=== PATIENT | male | born 1960 ===

== ENCOUNTER 2024-08-14 08:58 | Outpatient (AMB) | payer BC, SELFPAY ==
--- NOTE | 2024-08-14 08:58 | MHC.PC.OV ---
Vital Signs 08/14/24 09:11 08/14/24 09:20 Height 6 ft 8 in Weight 406 lb BMI 44.6 BP 144/80 H 118/72 Blood Pressure Location Rt brachial Rt brachial Position Sitting Sitting Pulse 76 Pulse Source Pulse Oximeter Pulse Oximetry (%) 95 Oxygen Delivery Method Room Air Intake Visit Reasons: MANAGER PET-EST CARE Intake Note: New patient visit. A1c 5.4 on 07/01/24 Allergies cats Allergy (Unknown, Uncoded 08/14/24 09:01) Sneezing Medication List - Last Reconciled 08/14/24 by Mikala Mclean PA-C lisinopril 30 mg PO DAILY Tobacco use date assessed: 08/14/24 Dental Screening Dental Screen Date: 08/14/24 Did you have a dental visit in the last 12 months?: Yes Did you have a dental problem in the last 6 months where you did not have access to dental care?: No Was dental information given to patient?: Patient has dentist HPI MANAGER PET-EST CARE HPI Details Patient is a 63-year-old male who presents today with a significant past medical history hypertension, hyperlipidemia, obstructive sleep apnea, morbid obesity, diabetes presenting today for a follow up. He was last seen by myself at [facility]. HEENT: He gets frequent otitis externa is due to his ear polyps. He would like to see ENT. PULM: Following with Dr. Tuttle for his CPAP. CV: Blood pressure today is 118/72 and on lisinopril 30 mg daily. Endo: Last A1c was 5.4 previously it was 7.4. He is on Ozempic 0.5 mg weekly. He would like to increase the dose of work further on weight loss. Colonoscopy: 10/24 diverticulosis, repeat in 10 years [facility] Surgical History (Updated 08/14/24 @ 09:00 by Antonina Pinzon CMA) H/O arthroscopy Family History (Updated 08/14/24 @ 09:08 by Antonina Pinzon CMA) Mother HTN (hypertension) Lung cancer Social History (Updated 08/14/24 @ 09:08 by Antonina Pinzon CMA) Housing: House Alcohol intake: current Patient Tobacco Use Status: Never used Tobacco e-Cigarette/Vaping Use: Never Used Second Hand Smoke Exposure: No service: No Current occupational status: employed and retired Cognitive needs: No Hearing needs: No Vision needs: No Physical exam (Primary Care) Vital Signs: Last Vital Signs Pulse 76 08/14/24 09:11 BP 118/72 08/14/24 09:20 Pulse Ox 95 08/14/24 09:11 Oxygen Delivery Method Room Air 08/14/24 09:11 BMI result Body Mass Index 44.6 Tobacco/Smoking Status: Tobacco use Status Tobacco use date assessed 08/14/24 08/14/24 09:13 Patient Tobacco Use Status Never used Tobacco 08/14/24 09:13 e-Cigarette/Vaping Use Never Used 08/14/24 09:13 Const Orientation/consciousness: patient oriented x3 HENMT Ears: hearing grossly normal bilaterally Neck Thyroid: Thyroid normal Lymphatic: no lymphadenopathy noted Resp Auscultation: clear to auscultation bilaterally Cardio Rate: regular rate Rhythm: regular rhythm Heart sounds: S1 normal heart sound present and S2 normal heart sound present GI Inspection: Yes normal to inspection Palpation (GI): Soft to palpation and Other GI palpation findings present (nontender, no cva tenderness) Auscultation: normoactive bowel sounds Rectal Exam - Male: Yes deferred Skin General skin exam: no rashes or lesions noted Neuro General: patient oriented x3, gait normal and no focal motor deficits Coding Level of Care Code Est Pt Level 4 (40521) Complex EM visit Add On G2211 Diagnoses Polyp of both ear canals H61.893 Controlled type 2 diabetes mellitus without complication, without long-term current use of insulin E11.9 Diabetes mellitus assisted insulin use: without assembler metal furniture use Diabetes mellitus complication status: without complication HTN (hypertension) I10 Severe obesity (BMI >= 40) E66.01 Dyslipidemia E78.5 Assessment & Plan Assessment & Plan (1) Polyp of both ear canals: Code(s): H61.893 - Other specified disorders of external ear, bilateral Category: Medical Plan: Referral to ENT placed (2) Controlled type 2 diabetes mellitus: Code(s): E11.9 - Type 2 diabetes mellitus without complications Category: Medical Qualifiers: Diabetes mellitus assembler metal furniture insulin use: without assisted use Diabetes mellitus complication status: without complication Qualified Code(s): E11.9 - Type 2 diabetes mellitus without complications Plan: Continue Ozempic. Increase dose today. (3) HTN (hypertension): Code(s): I10 - Essential (primary) hypertension Category: Medical Plan: WNL. Continue current regimen (4) Severe obesity (BMI >= 40): Code(s): E66.01 - Morbid (severe) obesity due to excess calories Category: Medical Plan: As above. Increased Ozempic. Encouraged him to reduce his portion sizes. (5) Dyslipidemia: Code(s): E78.5 - Hyperlipidemia, unspecified Category: Medical Plan: We will monitor. Labs ordered. We will follow up pending test results. Orders: Orders Complete Blood Count Auto Diff Today E11.9 - Type 2 diabetes mellitus without complications, E66.01 - Morbid (severe) obesity due to excess calories, E78.5 - Hyperlipidemia, unspecified, I10 - Essential (primary) hypertension Lipid Panel Today E11.9 - Type 2 diabetes mellitus without complications, E66.01 - Morbid (severe) obesity due to excess calories, E78.5 - Hyperlipidemia, unspecified, I10 - Essential (primary) hypertension Hemoglobin A1c Today E11.9 - Type 2 diabetes mellitus without complications, E66.01 - Morbid (severe) obesity due to excess calories, E78.5 - Hyperlipidemia, unspecified, I10 - Essential (primary) hypertension Comprehensive [place]. Panel Fast Today E11.9 - Type 2 diabetes mellitus without complications, E66.01 - Morbid (severe) obesity due to excess calories, E78.5 - Hyperlipidemia, unspecified, I10 - Essential (primary) hypertension Microalbumin, Random (w Creat) Today E11.9 - Type 2 diabetes mellitus without complications, E66.01 - Morbid (severe) obesity due to excess calories, E78.5 - Hyperlipidemia, unspecified, I10 - Essential (primary) hypertension TSH reflex Free T4 Today E11.9 - Type 2 diabetes mellitus without complications, E66.01 - Morbid (severe) obesity due to excess calories, E78.5 - Hyperlipidemia, unspecified, I10 - Essential (primary) hypertension Referrals Ear/Nose/Throat Referral H61.893 - Other specified disorders of external ear, bilateral Medications: New semaglutide (Ozempic) 1 mg (0.75 mL) subcut QWEEK 3 mL 2RF gycckdnm-dtxoffmtv-UF 3.5-10,000-1 mg/mL-unit/mL-% 4 drps otic (ear) left Q8H 10 mL 0RF 10 days
[2024-08-14 09:11] VITALS: BP 144/80; PULSE 76; O2SAT 95; BMI 44.6
[2024-08-14 09:20] VITALS: BP 118/72
== END 2024-08-14 09:59 | disposition home or self-care (01) ==
PROVIDERS: PCP Internal Medicine; Visit Provider Physician Assistant
DX: E11.69 Type 2 diabetes mellitus with other specified complication (principal); E66.01 Morbid (severe) obesity due to excess calories; Z68.41 Body mass index [BMI] 40.0-44.9, adult; H61.893 Other specified disorders of external ear, bilateral; I10 Essential (primary) hypertension; E78.5 Hyperlipidemia, unspecified

== ENCOUNTER → 2024-08-14 08:58 | Outpatient (BNVA) | payer BC, SELFPAY | PROVIDERS: PCP Internal Medicine; Visit Provider Physician Assistant | DX: Z23 Encounter for immunization (principal); H61.893 Other specified disorders of external ear, bilateral; E11.9 Type 2 diabetes mellitus without complications; I10 Essential (primary) hypertension; E66.01 Morbid (severe) obesity due to excess calories; Z68.41 Body mass index [BMI] 40.0-44.9, adult; E78.5 Hyperlipidemia, unspecified; Z79.85 Long-term (current) use of injectable non-insulin antidiabetic drugs | CPT/HCPCS: 90471; 90656 ==

== ENCOUNTER 2024-11-19 09:18 | Outpatient (AMB) | payer BC, SELFPAY ==
--- NOTE | 2024-11-19 09:33 | A.OFFPC_ITS ---
Vital Signs 11/19/24 09:41 Height 6 ft 8 in Weight 422 lb 6 oz BMI 46.4 BP 131/78 Blood Pressure Location Rt brachial Position Sitting Respiration 18 Pulse 77 Pulse Source Pulse Oximeter Pulse Oximetry (%) 98 Oxygen Delivery Method Room Air Intake Visit Reasons: DM Intake Note: Diabetes follow up Cutter First Required: No Allergies cats Allergy (Unknown, Uncoded 11/19/24 09:33) Sneezing Medication List - Last Reconciled 11/19/24 by Mikala Mclean PA-C lisinopril 30 mg PO DAILY qloaqzif-ixcyqwfnw-[place] 3.5-10,000-1 mg/mL-unit/mL-% 4 drps otic (ear) left Q8H 10 days semaglutide (Ozempic) 1 mg (0.75 mL) subcut QWEEK Tobacco use date assessed: 08/14/24 Dental Screening Dental Screen Date: 08/14/24 HPI DM HPI Details Patient is a 63-year-old male who presents today with a significant past medical history hypertension, hyperlipidemia, obstructive sleep apnea, morbid obesity, diabetes presenting today for a follow up. HEENT: He gets frequent otitis externa is due to his ear polyps. He would like to see ENT. PULM: Following with Dr. Tuttle for his CPAP. CV: Blood pressure today is 131/78 and on lisinopril 30 mg daily. Endo: Last A1c was 5.3 previously it was 7.4. He is on Ozempic 1 mg weekly. He would like to increase the dose of work further on weight loss. He did gain more weight from our last visit. He attributes this to the winter and lack of exercise with the holiday season as well. Colonoscopy: 10/24 diverticulosis, repeat in 10 years PSA-due [facility] Surgical History (Updated 08/14/24 @ 09:00 by Antonina Pinzon CMA) H/O arthroscopy Family History (Updated 08/14/24 @ 09:08 by Antonina Pinzon CMA) Mother HTN (hypertension) Lung cancer Social History (Updated 08/14/24 @ 09:08 by Antonina Pinzon CMA) Housing: House Alcohol intake: current Patient Tobacco Use Status: Never used Tobacco e-Cigarette/Vaping Use: Never Used Second Hand Smoke Exposure: No service: No Current occupational status: employed and retired Cognitive needs: No Hearing needs: No Vision needs: No Questionnaire Thrive Questionnaire Date Thrive assessed: 11/12/24 I am a: Patient What is your living situation today?: I have a steady place to live Within the past 12 months, did the food you bought not last and you didn't have the money to get more?: I choose not to answer this question Within the past 12 months, did you worry whether your food would run out before you got money to buy more?: I choose not to answer this question Do you have trouble paying for medicines?: I choose not to answer this question Do you have trouble getting transportation to medical appointments?: No Do you have trouble paying your heating and electricity bill?: I choose not to answer this question Do you have trouble taking care of your child, family member or friend?: No Do you have trouble with day-to-day activities such as bathing, preparing meals, shopping, managing finances, etc.?: No Are you currently unemployed and looking for a job?: I choose not to answer this question Are you interested in more education?: I choose not to answer this question Please select the resources that you would like help with: None Currently or been in a relationship where the following occur: I choose not to answer THRIVE Score: 0 AUDIT C Alcohol Use Questionnaire (AUDIT-C) 1. How often do you have a drink containing alcohol?: Monthly or less 2. How many drinks containing alcohol do you have on a typical day when you are drinking?: 1 or 2 3. How often do you have six or more drinks on one occasion?: Never Total Score: 1 LACY-7 AMB Questionnaire LACY-7 Feeling nervous, anxious, or on edge: 0 = Not at all Not being able to stop or control worryin = Not at all Worrying too much about different things: 0 = Not at all Trouble relaxin = Not at all Being so restless that it is hard to sit still: 0 = Not at all Becoming easily annoyed or irritable: 0 = Not at all Feeling afraid as if something awful might happen: 0 = Not at all Total LACY-7 score (0-4 normal; 5-9 mild; 10-14 moderate; 15-21 severe): 0 Source: Developed by Drs. Lio Desai, Brook Cabrales, Albert Ngo and colleagues, with an educational blanche from [employer]. Physical exam (Primary Care) Vital Signs: Last Vital Signs Pulse 77 11/19/24 09:41 Resp 18 11/19/24 09:41 BP 131/78 11/19/24 09:41 Pulse Ox 98 11/19/24 09:41 Oxygen Delivery Method Room Air 11/19/24 09:41 BMI result Body Mass Index 46.4 Tobacco/Smoking Status: Tobacco use Status Tobacco use date assessed 08/14/24 11/19/24 09:35 Patient Tobacco Use Status Never used Tobacco 11/19/24 09:35 e-Cigarette/Vaping Use Never Used 11/19/24 09:35 Thrive Assessment: Date of Thrive Assessment Date Thrive assessed 11/12/24 11/19/24 09:35 Currently or been in a relationship where the following occur: I choose not to answer Const Orientation/consciousness: patient oriented x3 HENMT Ears: hearing grossly normal bilaterally Neck Thyroid: Thyroid normal Lymphatic: no lymphadenopathy noted Resp Auscultation: clear to auscultation bilaterally Cardio Rate: regular rate Rhythm: regular rhythm Heart sounds: S1 normal heart sound present and S2 normal heart sound present GI Inspection: Yes normal to inspection Palpation (GI): Soft to palpation and Other GI palpation findings present (nontender, no cva tenderness) Auscultation: normoactive bowel sounds Rectal Exam - Male: Yes deferred Skin General skin exam: no rashes or lesions noted Neuro General: patient oriented x3, gait normal and no focal motor deficits Results AMB Hemoglobin A1c AMB Hemoglobin A1c 5.3 % Last Edit by Antonina Pinzon CMA on 11/19/24 10:03 Coding Level of Care Code Est Pt Level 4 (93990) Complex EM visit Add On G2211 Diagnoses Controlled type 2 diabetes mellitus without complication, without long-term current use of insulin E11.9 Diabetes mellitus complication status: without complication Diabetes mellitus senior care insulin use: without regional intermodal truck driver use Severe obesity (BMI >= 40) E66.01 HTN (hypertension) I10 Dyslipidemia E78.5 Assessment & Plan Assessment & Plan (1) Controlled type 2 diabetes mellitus: Code(s): E11.9 - Type 2 diabetes mellitus without complications Category: Medical Qualifiers: Diabetes mellitus complication status: without complication Diabetes mellitus regional intermodal truck driver insulin use: without regional intermodal truck driver use Qualified Code(s): E11.9 - Type 2 diabetes mellitus without complications Plan: Well-controlled with Ozempic. We will increase the dosage of Ozempic. Labs ordered today. (2) Severe obesity (BMI >= 40): Code(s): E66.01 - Morbid (severe) obesity due to excess calories Category: Medical Plan: Increase Ozempic. Encouraged increased physical activity reduction of portion sizes. (3) HTN (hypertension): Code(s): I10 - Essential (primary) hypertension Category: Medical Plan: WNL. Continue current regimen (4) Dyslipidemia: Code(s): E78.5 - Hyperlipidemia, unspecified Category: Medical Plan: We will check lipids today. We will follow up pending test results. Orders: Orders Microalbumin, Random (w Creat) Today E11.9 - Type 2 diabetes mellitus without complications, E66.01 - Morbid (severe) obesity due to excess calories, E78.5 - Hyperlipidemia, unspecified, I10 - Essential (primary) hypertension Lipid Panel Today E11.9 - Type 2 diabetes mellitus without complications, E66.01 - Morbid (severe) obesity due to excess calories, E78.5 - Hyperlipidemia, unspecified, I10 - Essential (primary) hypertension Prostate Specific Antigen Scr Today E11.9 - Type 2 diabetes mellitus without complications, E66.01 - Morbid (severe) obesity due to excess calories, E78.5 - Hyperlipidemia, unspecified, I10 - Essential (primary) hypertension, Z01.89 - Encounter for other specified special examinations AMB Hemoglobin A1c Today E11.9 - Type 2 diabetes mellitus without complications Comprehensive [place]. Panel Fast Today E11.9 - Type 2 diabetes mellitus without complications, E66.01 - Morbid (severe) obesity due to excess calories, E78.5 - Hyperlipidemia, unspecified, I10 - Essential (primary) hypertension B Type Natriuretic Peptide Today E11.9 - Type 2 diabetes mellitus without complications, E66.01 - Morbid (severe) obesity due to excess calories, E78.5 - Hyperlipidemia, unspecified, I10 - Essential (primary) hypertension TSH reflex Free T4 Today E11.9 - Type 2 diabetes mellitus without complications, E66.01 - Morbid (severe) obesity due to excess calories, E78.5 - Hyperlipidemia, unspecified, I10 - Essential (primary) hypertension Medications: New semaglutide (Ozempic) 2 mg (0.75 mL) subcut QWEEK 3 mL 3RF clotrimazole-betamethasone 1-0.05 % 1 appl topical BID 4 weeks 15 grams 3RF Refilled tkijxvif-qtmfqzfbh-OC 3.5-10,000-1 mg/mL-unit/mL-% 4 drps otic (ear) left Q8H 10 days 10 mL 0RF Discontinued semaglutide (Ozempic) Discontinued Reason: Doctor's Order 1 mg (0.75 mL) subcut QWEEK 3 mL 2RF
[2024-11-19 09:41] VITALS: BP 131/78; PULSE 77; RESP 18; O2SAT 98; BMI 46.4
== END 2024-11-19 10:07 | disposition home or self-care (01) ==
PROVIDERS: PCP Physician Assistant; Visit Provider Physician Assistant
DX: E11.69 Type 2 diabetes mellitus with other specified complication (principal); E66.01 Morbid (severe) obesity due to excess calories; Z68.42 Body mass index [BMI] 45.0-49.9, adult; I10 Essential (primary) hypertension; E78.5 Hyperlipidemia, unspecified

== ENCOUNTER → 2024-11-19 09:18 | Outpatient (BNVA) | payer BC, SELFPAY | PROVIDERS: PCP Physician Assistant; Visit Provider Physician Assistant | DX: E11.9 Type 2 diabetes mellitus without complications (principal); E66.01 Morbid (severe) obesity due to excess calories; Z68.42 Body mass index [BMI] 45.0-49.9, adult; I10 Essential (primary) hypertension; E78.5 Hyperlipidemia, unspecified; Z79.899 Other long term (current) drug therapy | CPT/HCPCS: 83036 ==

== ENCOUNTER 2024-11-19 10:13 | Outpatient (REF) | payer BC, SELFPAY ==
--- OUTSIDE RECORDS SUMMARY | 2024-11-19 10:44 | XMS_ITS | Data Portability ---
Author Organization [place] - [facility], Allergy Address [address] [place] [id number] Care Team Providers Care Cigar Head Piercer Name Role Phone ANDRE STONE Primary Care Provider Assessment Encounter Date Assessment Date Assessment LastModified by Organization Details LastModified Time 10/03/2024 10/03/2024 There are prominent exostoses bilaterally, but not so severe that I cannot see the TM. There is no obstructive cerumen or evidence of active infection today. I did recommend using white vinegar? r ubbing alcohol drops at least once a week for preventative maintenance. He can use a hair worker on low if he has any moisture in his ears or after swimming. I did recommend keeping his ears as dry as possible. I am optimistic he will not require surgery with the above regimen. [email or web address] Not available 10/03/2024 13:07:52 Plan of Treatment Reminders Order Date Submit Date Provider Last Modified By Organization Details Last Modified Time Details Appointments None record ed. Lab None record ed. Referral None record ed. Procedures None record ed. Surgeries None record ed. Imaging None record ed. Medication Orders None record ed. Patient TargetsNo targets recorded. Patient InstructionsNo instructions recorded. Reason for Referral None Reported. Problems Name Problem SNOMED Code Status Onset Date Resolution Date Notes Provider Name and Address Organization Details Recorded Time Bilateral external auditory canal chronic otitis externa 84374942224 76629 Active 2021 Unspecifi ed chronic otitis externa, bilateral ; Note: Date Diagnosed : 04/05/2022 3:33 PM (H60.63) Not Available [facility] 4 03:23:05 Impacted cerumen of bilateral ears 96884730185 40855 Active 2018 Impacted cerumen, bilateral ; Note: Date Diagnosed : 09/08/2019 10:14 AM (H61.23) Not Available [facility] 4 03:23:05 Bilateral exostosis of external ear canals [id number] 93572 Active 2018 Exostosis of external canal, bilateral ; Note: Date Diagnosed : 09/08/2019 12:53 PM (H61.813) Not Available [facility] 4 03:23:05 Simple obesity [id number] Active 2018 Other obesity due to excess calories; Note: Date Diagnosed : 09/08/2019 10:14 AM (E66.09) Not Available [facility] 4 03:23:05 Problem Notes None recorded. Medical Equipment None Reported. Medications Name Sig Start Date Stop Date Status Note LastModified by Organization Details LastModified Time neomycin- polymyxin -hydrocor t 3.5 mg/mL-10, 000 unit/mL-1 % ear solution PLACE 4 DROPS INTO THE LEFT EAR EVERY 8 HOURS FOR 10 DAYS active Not Available Not Available No t Available Lotrisone 1 %-0.05 % topical cream 1 a small amount to affected area 09/18 completed Medicati on ID: [id number] D uration Value: 5 Prescri bed By Name: Kylie villatoro MD Brand Name: Lotrison e Send Method: E-Prescr ibed Sub s Allowed: subs OK Medic ationGen ericName : Lotrison e Not Available Not Available Not Available clotrimaz ole-betam ethasone 1 %-0.05 % lotion Apply 1 a small amount to affected area twice a day 09/18 completed Medicati on ID: [id number] D uration Value: 5 Brand Name: Lotrison e Send Method: E-Prescr ibed Sub s Allowed: subs OK Medic ationGen ericName : Lotrison e Not Available Not Available Not Available lisinopri l 20 mg tablet 2018 active Medicati on ID: [id number] D uration Value: 90 Brand Name: lisinopr il Send Method: E-Prescr ibed Sub s Allowed: subs OK Speci al Instruct ion: TAKE 1 TABLET BY MOUTH EVERY DAY Medi cationGe nericNam e: lisinopr il Not Available Not Available Not Available peg-elect rolyte solution 420 gram oral solution DRINK 240 ML BY MOUTH EVERY 10 MINUTES active Not Available Not Available No t Available nystatin 100,000 unit/gram topical cream APPLY THIN LAYER TO RED SKIN TWICE DAILY FOR 2 WEEKS active Not Available Not Available No t Available lisinopri l 30 mg tablet TAKE 1 TABLET BY MOUTH DAILY active Not Available Not Available No t Available betametha sone dipropion ate 0.05 % topical cream APPLY THIN LAYER TO RED AREA TWICE DAILY FOR 2 WEEKS active Not Available Not Available No t Available amoxicill in 875 mg-potass ium clavulana te 125 mg tablet TAKE 1 TABLET BY MOUTH TWICE A DAY FOR 10 DAYS active Not Available Not Available No t Available ciproflox acin 0.3 %-dexamet hasone 0.1 % ear drops,bora pension PLACE 4 DROPS IN BOTH EARS 2 TIMES A DAY FOR 7 DAYS active Not Available Not Available No t Available Fish Oil 2018 active Medicati on ID: [id number] B rand Name: [employer] Send Method: E-Prescr ibed Sub s Allowed: subs OK Medic ationGen ericName : Fish oil Not Available Not Available Not Available Ozempic 1 mg/dose (4 mg/3 mL) subcutane ous pen injector INJECT 1 MG (0.75 ML) SUBCUTAN EOUSLY WEEKLY active Not Available Not Available No t Available Ozempic 0.25 mg or 0.5 mg (2 mg/3 mL) subcutane ous pen injector INJECT 0.5 SUBCUTAN EOUSLY EVERY 7 DAYS active Not Available Not Available No t Available Vitals None Recorded Social History None recorded. Functional Status None recorded. Mental Status None recorded. Family History Nothing Reported Notes:Cardiovascular: Hypert ension - mother. Endocrine: Diabetes, age at onset unspecified - mother. Medical History Condition Response Allergies/Hayfever N Heart Problems N Anxiety N Tonsil Infections N Emphysema N Migraines N Thyroid Problems N Depression N COPD N Developmental Delay N Glaucoma N Nasal or Sinus Problems N Anemia N Immune System Disorder N Anesthesia Complications N Heart Attack ([place]) N Other Skin Condition N Diabetes Y Rhinitis N Bleeding Disorder N Food Allergy N Hearing Loss N Arthritis N Hyperlipidemia N Cancer N Stroke N Dementia N Nasal polyps N Asthma N Sleep Disorder Y High Cholesterol N GERD/Reflux N Liver Disease N Headaches N Fibromyalgia N Hypertension Y Speech Delay N Kidney Disease N Past Encounters Encounter ID Performer Location Encounter Start Date Encounter Closed Date Diagnosis/Indication Diagnosis SNOMED-CT Code Diagnosis ICD10 Code Diagnosis Note [id number] KYLIE HERNANDEZ MD [facility] [address] [id number] 10/03/2024 12:06:09 10/03/2024 13:07:10 Bilateral exostosis of external ear canals [id number] H61.813 Health Concerns Section Related Observation LastModified by Organization Detai ls LastModified Time None Recorded Concern Status LastModified by Organization Details LastModified Time None Recorded Advance Directives Directive None Recorded Payers Encounter Date Sequence Insurance Name Policy Number Policy [place] Covered Member ID [place] Member ID Guarantor Name 10/03/2024 1 [facility] [place] [id number] Tomas Garnica [id number] Tmoas Garnica Notes Date Note Type Note Provider Name and Address Organization Details Recorded Time 10/03/2024 text/html No longer swimming due to ear infections.About 4 infections per year.Worse on the left.No Qtips PV: . Rhdza-hagq-erl male presents today due to concern for polyps in his ears. He has a history of recurrent otitis externa. He is beenon multiple courses of medication for infections. His recently on oral antibiotics. He does swims frequently. KYLIE HERNANDEZ MD [address] [place] [address], [phone], [facility] - [facility] 10/03/2024 13:08:56
[2024-11-19 14:17] LABS: MANUAL DIFF FLAG NO
[2024-11-19 14:24] LABS: Basophils Absolute Auto 0.1 X10*3/uL (0.0-0.2); Basophils Percent Auto 1.1 % (0-2); Eosinophils Absolute Auto 0.3 X10*3/uL (0.0-0.4); Eosinophils Percent Auto 3.9 % (0-4); Hematocrit 48.8 % (42.0-52.0); Hemoglobin 16.5 g/dl (14.0-18.0); Imm Gran Abs Auto 0.03 X10*3/uL (0.00-0.03); Imm Gran Pct Auto 0.5 % (0.0-0.4); Lymphocytes Absolute Auto 1.8 X10*3/uL (1.2-4.9); Lymphocytes Percent Auto 27.8 % (20-40); Mean Corpuscular HGB Conc 33.8 g/dl (31.0-36.0); Mean Corpuscular Hemoglobin 31.2 pg (27.0-33.0); Mean Corpuscular Volume 92.2 fL (80.0-98.0); Mean Platelet Volume 10.4 fL (9.4-12.4); Monocytes Absolute Auto 0.7 X10*3/uL (0.1-1.2); Monocytes Percent Auto 10.3 % (2-11); Neutrophils Absolute Auto 3.6 x10*3/uL (2.0-8.3); Neutrophils Percent Auto 56.4 % (45-73); Platelet Count 226 X10*3/uL (160-400); Red Blood Count 5.29 X10*6/uL (4.60-5.80); Red Cell Distribution Width 12.5 % (11.0-16.0); White Blood Count 6.4 X10*3/uL (4.8-10.8)
[2024-11-19 14:33] LABS: Estimated Average Glucose 103 mg/dL; Hemoglobin A1C 139.9487 umol/L; Hemoglobin A1c % 5.2 % (<6.0); Total Hemoglobin (HGBA1C) 4259.9157 umol/L
[2024-11-19 14:46] LABS: Creatinine Urine 207.37 mg/dL; Microalbum/Creatinine Ratio Ur 5.3 ug/mg cr (<30)
[2024-11-19 14:49] LABS: Alanine Aminotransferase 28 U/L (0-40); Albumin Level 4.4 g/dL (3.5-5.0); Alkaline Phosphatase 71 U/L (39-117); Anion Gap 12 (12-20); Aspartate Amino Transferase 35 U/L (5-37); Bilirubin Total 0.9 mg/dL (0.0-1.0); Blood Urea Nitrogen 14 mg/dL (9-16); Calcium 9.1 mg/dL (8.4-10.2); Carbon Dioxide 22 mmol/L (22-29); Chloride 111 mmol/L (96-108); Cholesterol 132 mg/dL (<200); Estimated Glomerular Filt Rate > 60; Glucose Fasting 99 mg/dL (60-99); HDL Cholesterol 33 mg/dL (>40); LDL Cholesterol Calculated 76 mg/dL (<100); Potassium 4.1 mmol/L (3.3-5.1); Sodium 141 mmol/L (135-145); Total Protein 7.6 g/dL (6.5-8.0); Triglycerides 115 mg/dL (<150)
[2024-11-19 14:55] LABS: Prostate Specific Antigen Scr 4.66 ng/mL (<0.05-4.0)
[2024-11-19 15:11] LABS: B Type Natriuretic Peptide 14 pg/mL (<100)
== END 2024-11-19 10:14 | disposition home or self-care (01) ==
LOC: HO.WFDLDS 10:13
PROVIDERS: Visit Provider Physician Assistant
DX: E11.9 Type 2 diabetes mellitus without complications (principal); I10 Essential (primary) hypertension; E66.01 Morbid (severe) obesity due to excess calories; E78.5 Hyperlipidemia, unspecified; Z12.5 Encounter for screening for malignant neoplasm of prostate
CPT/HCPCS: 36415; 80053; 80061; 82043; 82570; 83036; 83880; 84153; 84443; 85025

== ENCOUNTER 2025-01-12 14:12 | Outpatient (AMB) | payer BC, SELFPAY ==
--- NOTE | 2025-01-12 14:19 | MHC.OFFVIS ---
Intake Visit Reasons: Elevated PSA Intake Note: New patient presents today for initial visit for elevated PSA PSA 11/19: 4.66 Urology Medication:none Blood Thinner:none Antibiotic Allergies:none Allergies cats Allergy (Unknown, Uncoded 11/19/24 09:33) Sneezing Medication List - Last Reconciled 01/12/25 by Ramsey Middleton MD clotrimazole-betamethasone 1-0.05 % 1 appl topical BID clotrimazole-betamethasone 1-0.05 % 1 appl topical BID 4 weeks lisinopril 30 mg PO DAILY esykveqq-utssflgju-AL 3.5-10,000-1 mg/mL-unit/mL-% 4 drps otic (ear) left Q8H 10 days semaglutide (Ozempic) 2 mg (0.75 mL) subcut QWEEK tamsulosin (Flomax) 0.4 mg PO DAILY HPI Comments Details: History of Present Illness The patient is a 64-year-old male presenting with an elevated prostate-specific antigen (PSA) level. He was referred due to a PSA test result showing a level of 4.66, which exceeds the normal range (0-4). This is the first known elevation, and the patient was not previously familiar with the PSA test or its implications. 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 The patient reports frequent nocturia, urinating multiple times at night, and has a history of taking tamsulosin but has recently run out. His medical history is significant for type 2 diabetes mellitus, which he claims is well-controlled. Urinary Symptoms Review - Frequent nocturia, needing to urinate 3-4 times per night. - Recent cessation of tamsulosin, which had been prescribed to aid urine flow. - Complaints of recurring penile infection; previously treated with a cream which has been depleted. - Previous urology management at [place] with an unknown practitioner. Results - PSA: 4.66, above normal range of 0-4. Discussion Notes I addressed the concerns regarding the slight elevation in PSA and discussed the implications of prostate-specific antigen levels. A decision was made to repeat the PSA once the patient resumes the use of the prescribed cream and tamsulosin. I explained the role of the prostate and how its enlargement or inflammation can impact PSA levels. We discussed the possibility of further evaluation through a biopsy if PSA levels remain elevated after retesting. I informed the patient of the need to abstain from sexual activity two days prior to retesting to prevent PSA fluctuation. Additionally, I plan to conduct an ultrasound of the prostate to assess for structural abnormalities. Options for managing recurrent penile infections were discussed, including the potential for circumcision if infections persist. The patient consented to the plan outlined, including the repeat PSA and ultrasound procedure. Plan The patient will restart tamsulosin therapy to manage urinary symptoms. A prescription for the topical antifungal cream will be issued for penile infection management. Before retesting PSA levels, sexual abstention is advised to improve test accuracy, followed by a prostate ultrasound. If PSA levels remain elevated, further investigation through biopsy may be considered. A possible circumcision was discussed should recurrent infections persist. The patient was informed of all procedures and agreed to the plan, emphasizing the importance of compliance with the fasting requirement before blood work. Patient Instructions - Resume tamsulosin at 0.4 mg once daily. - Use the prescribed topical cream on infected penile areas as directed. - Abstain from sexual activity for two days before PSA retesting. - Fast before the scheduled blood draw as instructed. - Return for follow-up appointments as scheduled or if symptoms persist or worsen. - Consider circumcision discussion if penile infections continue. Patient was informed and verbally consented to the use of an ambient scribe for clinic note documentation during this visit. [facility] Surgical History H/O arthroscopy Family History Mother HTN (hypertension) Lung cancer Social History Housing: House Alcohol intake: current Patient Tobacco Use Status: Never used Tobacco e-Cigarette/Vaping Use: Never Used Second Hand Smoke Exposure: No service: No Current occupational status: employed and retired Cognitive needs: No Hearing needs: No Vision needs: No Review of Systems Const All systems reviewed & are unremarkable except as noted in HPI and below Reports no additional complaints Eyes Reports no additional complaints ENT Reports no additional complaints Card Reports no additional complaints Resp Reports no additional complaints GI Reports no additional complaints Reports as per HPI Musc Reports no additional complaints Skin/Breast Reports system reviewed and no additional complaints, except as documented Neuro Reports no additional complaints Psych Reports no additional complaints Endo Reports no additional complaints Pj/Lymph Reports no additional complaints Aller/Immun Reports no additional complaints Physical Exam Const General: healthy appearing, no acute distress and well developed Orientation/consciousness: patient oriented x3 HEENT Head: Yes normocephalic and Yes atraumatic Eyes Conjunctivae: conjunctivae normal Neck Neck: Yes normal visual inspection Chest Chest palpation & inspection: normal inspection of the chest Resp Effort & Inspection: normal respiratory effort Cardio Rate: regular rate GI Inspection: Yes normal to inspection Neuro General: patient oriented x3 Psych Appearance: grossly normal Affect: normal affect Results AMB Urinalysis, Automated UA Leukoctes 0 Ian/uL Last Edit by Antonina Messina on 01/12/25 16:37 UA Nitrite Negative Last Edit by Antonina Messina on 01/12/25 16:37 UA Urobilinogen 0.2 mg/dL Last Edit by Antonina Messina on 01/12/25 16:37 UA Protein 0 mg/dL Last Edit by Antonina Messina on 01/12/25 16:37 UA pH 6.0 Last Edit by Antonina Messina on 01/12/25 16:37 UA Blood 0 Nicholas/uL Last Edit by Antonina Messina on 01/12/25 16:37 UA Specific [place] 1.025 Last Edit by Antonina Messina on 01/12/25 16:37 UA Ketone Negative Last Edit by Antonina Messina on 01/12/25 16:37 UA Bilirubin 0 mg/dL Last Edit by Antonina Messina on 01/12/25 16:37 UA Glucose 0 mg/dL Last Edit by Antonina Messina on 01/12/25 16:37 Assessment & Plan Assessment & Plan Orders: Orders AMB Urinalysis Automated Today Z13.9 - Encounter for screening, unspecified Medications: New clotrimazole-betamethasone 1-0.05 % 1 appl topical BID 45 grams 1RF tamsulosin (Flomax) 0.4 mg PO DAILY 90 caps 3RF Coding Level of Care Code New Pt Level 4 (45355)
== END 2025-01-12 15:03 | disposition home or self-care (01) ==
LOC: HO.HUSH 14:12
PROVIDERS: PCP Physician Assistant; Visit Provider Urology
DX: Z13.9 Encounter for screening, unspecified (principal)

== ENCOUNTER → 2025-01-12 14:12 | Outpatient (BNVA) | payer BC, SELFPAY | PROVIDERS: PCP Physician Assistant; Visit Provider Urology | DX: R97.20 Elevated prostate specific antigen [PSA] (principal); N40.1 Benign prostatic hyperplasia with lower urinary tract symptoms; N13.8 Other obstructive and reflux uropathy; N48.1 Balanitis; Z79.899 Other long term (current) drug therapy | CPT/HCPCS: 81003 ==

== ENCOUNTER 2025-02-19 12:51 | Outpatient (REF) | payer BC, SELFPAY ==
--- NOTE | ~2025-02-19 | US_ITS ---
CLINICAL HISTORY: R97.20 - Elevated prostate specific antigen [PSA] US renal with Color Doppler Comparison: None Findings: Right kidney normal size and echotexture, 14.3 cm length. No nephrolithiasis. No hydronephrosis. Normal color flow. Upper pole cyst measuring 8.7 x 8.0 x 9.3 cm. Left kidney normal size and echotexture, 15.0 cm length. No nephrolithiasis. No hydronephrosis. Normal color flow. Midpole cyst measuring 2.6 x 5.0 x 3.3 cm and upper pole cyst measuring 2.2 x 2.3 x 2.0 cm Impression: 1. Bilateral renal cortical cysts can be better evaluated with a CT or MRI with and without contrast renal protocol study. This document has been electronically signed by: Regan Garcia MD on 02/20/2025 10:34:30
--- OUTSIDE RECORDS SUMMARY | 2025-02-19 12:56 | XMS_ITS | Data Portability ---
Author Organization [place] - [facility], Allergy Address [address] [place] [id number] Care Team Providers Care Medical Technologist Microbiology Name Role Phone ANDRE STONE Primary Care [...] for preventative maintenance. He can use a astronomy department chair on low if he has any moisture [...] Bilateral external auditory canal chronic otitis externa 04197081361 46907 Active 2021 Unspecifi ed chronic otitis externa, bilateral ; Note: Date Diagnosed : 04/05/2022 3:33 PM (H60.63) Not Available [facility] 4 03:23:05 Impacted cerumen of bilateral ears [id number] 19484 Active 2018 Impacted cerumen, bilateral ; Note: Date Diagnosed : 09/08/2019 10:14 AM (H61.23) Not Available [facility] 4 03:23:05 Bilateral exostosis of external ear canals [id number] 71306 Active 2018 Exostosis of external canal, bilateral ; Note: Date Diagnosed : 09/08/2019 12:53 PM (H61.813) Not Available [facility] 4 03:23:05 Simple obesity 977549345 Active 2018 Other obesity due to excess calories; Note: Date Diagnosed : 09/08/2019 10:14 AM (E66.09) Not Available [facility] 4 03:23:05 Problem Notes None recorded. Medical [...] affected area 09/18 completed Medicati on ID: [id number] D uration Value: 5 Prescri bed By Name: Kylie villatoro MD Brand Name: Lotrison e Send Method: E-Prescr ibed Sub s Allowed: subs OK Medic ationGen ericName : Lotrison e Not Available Not Available Not Available clotrimaz ole-betam ethasone 1 %-0.05 % lotion Apply 1 a small amount to affected area twice a day 09/18 completed Medicati on ID: [id number] D uration Value: 5 Brand Name: Lotrison e Send Method: E-Prescr ibed Sub s Allowed: subs OK Medic ationGen ericName : Lotrison e Not Available Not Available Not Available lisinopri l 20 mg tablet 2018 active Medicati on ID: [id number] D uration Value: 90 Brand Name: lisinopr [...] Fish Oil 2018 active Medicati on ID: [id number] B rand Name: Bango Send Method: E-Prescr ibed Sub s Allowed: [...] Emphysema N Migraines N Thyroid Problems N Glaucoma N Depression N COPD N Developmental Delay N Nasal or Sinus Problems N Anemia N Immune System Disorder N Anesthesia Complications N Heart Attack ([place]) N Other Skin Condition N Diabetes Y Rhinitis N Bleeding Disorder N Food Allergy N Arthritis N Hearing Loss N Hyperlipidemia N Cancer N Stroke N Dementia N Nasal polyps N Asthma N High Cholesterol N Sleep Disorder Y GERD/Reflux N Liver Disease N Headaches N Fibromyalgia N Hypertension Y Speech Delay N Kidney Disease N Past Encounters Encounter ID Performer Location Encounter Start Date Encounter Closed Date Diagnosis/Indication Diagnosis SNOMED-CT Code Diagnosis ICD10 Code Diagnosis Note [id number] KYLIE HERNANDEZ MD [facility] [address] [phone] 10/03/2024 12:06:09 10/03/2024 13:07:10 Bilateral exostosis of external ear canals [id number] 142301 H61.813 Health Concerns Section Related Observation LastModified by Organization Detai ls LastModified Time None Recorded Concern Status LastModified by Organization Details LastModified Time None Recorded Advance Directives Directive None Recorded Payers Insurance Date Sequence Insurance Name Policy Number Policy [place] Covered Member ID Putnam Member ID Guarantor Name 10/03/2024 1 [facility]: [facility] [id number] Tomas Garnica [id number] Tomas Garnica 10/03/2024 1 [employer] [id number] Tomas Garnica [id number] Tomas Garnica Notes Date Note Type Note Provider Name and Address Organization Details Recorded Time 10/03/2024 text/html No longer swimming due to ear infections.About 4 infections per year.Worse on the left.No Qtips PV: . Luazh-xrsc-uok male presents today due to concern for polyps in his ears. He has a history of recurrent otitis externa. He is beenon multiple courses of medication for infections. His recently on oral antibiotics. He does swims frequently. KYLIE HERNANDEZ MD [address] [place] [address], [phone], [facility] - [facility] 10/03/2024 13:08:56
[2025-02-19 14:08] LABS: Alanine Aminotransferase 26 U/L (0-40); Albumin Level 4.4 g/dL (3.5-5.0); Alkaline Phosphatase 73 U/L (39-117); Anion Gap 11 (12-20); Aspartate Amino Transferase 26 U/L (5-37); Blood Urea Nitrogen 14 mg/dL (9-16); Calcium 9.2 mg/dL (8.4-10.2); Carbon Dioxide 22 mmol/L (22-29); Chloride 110 mmol/L (96-108); Cholesterol 134 mg/dL (<200); Estimated Glomerular Filt Rate > 60; Glucose Fasting 96 mg/dL (60-99); HDL Cholesterol 34 mg/dL (>40); LDL Cholesterol Calculated 80 mg/dL (<100); Potassium 4.1 mmol/L (3.3-5.1); Sodium 139 mmol/L (135-145); Total Protein 7.3 g/dL (6.5-8.0); Triglycerides 101 mg/dL (<150)
[2025-02-19 14:23] LABS: TSH reflex Free T4 1.43 uIU/mL (0.32-4.0)
[2025-02-19 14:42] LABS: Creatinine Urine 191.14 mg/dL; Microalbum/Creatinine Ratio Ur 10.9 ug/mg cr (<30)
== END 2025-02-19 12:52 | disposition home or self-care (01) ==
LOC: HO.US 12:51
PROVIDERS: Absent Provider Physician Assistant; PCP Physician Assistant; Visit Provider Urology
DX: R97.20 Elevated prostate specific antigen [PSA] (principal); E78.5 Hyperlipidemia, unspecified; E66.01 Morbid (severe) obesity due to excess calories; I10 Essential (primary) hypertension; E11.9 Type 2 diabetes mellitus without complications
CPT/HCPCS: 36415; 76775; 80053; 80061; 82043; 82570; 84443

== ENCOUNTER → 2025-02-19 13:07 | Outpatient (BNV) | payer BC, SELFPAY | PROVIDERS: Absent Provider Physician Assistant; PCP Physician Assistant; Visit Provider Radiology Diagnostic Radiology | DX: N28.1 Cyst of kidney, acquired (principal) | CPT/HCPCS: 76775 ==

== ENCOUNTER 2025-03-13 12:38 | Outpatient (AMB) | payer BC, SELFPAY ==
--- NOTE | 2025-03-13 12:59 | MHC.OFFVIS ---
Intake Visit Reasons: 2m/US/PSA Intake Note: Patient presents today for 2m follow up/US/PSA Renal US 02/20 PSA not done Urology Medication:none Blood Thinner:none Antibiotic Allergies:none Allergies cats Allergy (Unknown, Uncoded 11/19/24 09:33) Sneezing HPI Comments Details: History of Present Illness The patient is a 64-year-old male presenting with an elevated prostate-specific antigen (PSA) level. He was referred due to a PSA test result showing a level of 4.66, which exceeds the normal range (0-4). This is the first known elevation, and the patient was not previously familiar with the PSA test or its implications. 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 The patient reports frequent nocturia, urinating multiple times at night, and has a history of taking tamsulosin but has recently run out. His medical history is significant for type 2 diabetes mellitus, which he claims is well-controlled. Urinary Symptoms Review - Frequent nocturia, needing to urinate 3-4 times per night. - Recent cessation of tamsulosin, which had been prescribed to aid urine flow. - Complaints of recurring penile infection; previously treated with a cream which has been depleted. - Previous urology management at [place] with an unknown practitioner. Results - PSA: 4.66, above normal range of 0-4. Discussion Notes I addressed the concerns regarding the slight elevation in PSA and discussed the implications of prostate-specific antigen levels. A decision was made to repeat the PSA once the patient resumes the use of the prescribed cream and tamsulosin. I explained the role of the prostate and how its enlargement or inflammation can impact PSA levels. We discussed the possibility of further evaluation through a biopsy if PSA levels remain elevated after retesting. I informed the patient of the need to abstain from sexual activity two days prior to retesting to prevent PSA fluctuation. Additionally, I plan to conduct an ultrasound of the prostate to assess for structural abnormalities. Options for managing recurrent penile infections were discussed, including the potential for circumcision if infections persist. The patient consented to the plan outlined, including the repeat PSA and ultrasound procedure. Plan The patient will restart tamsulosin therapy to manage urinary symptoms. A prescription for the topical antifungal cream will be issued for penile infection management. Before retesting PSA levels, sexual abstention is advised to improve test accuracy, followed by a prostate ultrasound. If PSA levels remain elevated, further investigation through biopsy may be considered. A possible circumcision was discussed should recurrent infections persist. The patient was informed of all procedures and agreed to the plan, emphasizing the importance of compliance with the fasting requirement before blood work. Patient Instructions - Resume tamsulosin at 0.4 mg once daily. - Use the prescribed topical cream on infected penile areas as directed. - Abstain from sexual activity for two days before PSA retesting. - Fast before the scheduled blood draw as instructed. - Return for follow-up appointments as scheduled or if symptoms persist or worsen. - Consider circumcision discussion if penile infections continue. Patient was informed and verbally consented to the use of an ambient scribe for clinic note documentation during this visit. PF[facility] Surgical History H/O arthroscopy Family History Mother HTN (hypertension) Lung cancer Social History Housing: House Alcohol intake: current Patient Tobacco Use Status: Never used Tobacco e-Cigarette/Vaping Use: Never Used Second Hand Smoke Exposure: No service: No Current occupational status: employed and retired Cognitive needs: No Hearing needs: No Vision needs: No Results AMB Urinalysis, Automated UA Leukoctes 0 Ian/uL Last Edit by Antonina Messina on 03/13/25 16:20 UA Nitrite Negative Last Edit by Antonina Messina on 03/13/25 16:20 UA Urobilinogen 3.5 mg/dL Last Edit by Antonina Messina on 03/13/25 16:20 UA Protein 1 mg/dL Last Edit by Antonina Messina on 03/13/25 16:20 UA pH 6.0 Last Edit by Antonina Messina on 03/13/25 16:20 UA Blood 0 Nicholas/uL Last Edit by Antonina Messina on 03/13/25 16:20 UA Specific [place] 1.020 Last Edit by Antonina Messina on 03/13/25 16:20 UA Ketone Negative Last Edit by Antonina Messina on 03/13/25 16:20 UA Bilirubin 0 mg/dL Last Edit by Antonina Messina on 03/13/25 16:20 UA Glucose 0 mg/dL Last Edit by Antonina Messina on 03/13/25 16:20 Assessment & Plan Assessment & Plan Orders: Orders AMB Urinalysis Automated Today R97.20 - Elevated prostate specific antigen [PSA] Medications: New finasteride (Proscar) 5 mg PO DAILY 90 tabs 1RF Coding
--- OUTSIDE RECORDS SUMMARY | 2025-03-13 13:09 | XMS_ITS | Data Portability ---
Author Organization [place] - [facility], Allergy Address [address] [place] [phone] Care Team Providers Care Manufacturing Lab Technician Name Role Phone ANDRE STONE Primary Care Provider [phone] Assessment Encounter Date Assessment Date Assessment LastModified by Organization Details LastModified Time 10/03/2024 10/03/2024 There are prominent exostoses bilaterally, but not so severe that I cannot see the TM. There is no obstructive cerumen or evidence of active infection today. I did recommend using white vinegar? r ubbing alcohol drops at least once a week for preventative maintenance. He can use a electric wheelchair repairer on low if he has any moisture [...] Bilateral external auditory canal chronic otitis externa [id number] 28421 Active 2021 Unspecifi ed chronic otitis externa, bilateral ; Note: Date Diagnosed : 04/05/2022 3:33 PM (H60.63) Not Available [facility] 4 03:23:05 Impacted cerumen of bilateral ears 74169111077 39482 Active 2018 Impacted cerumen, bilateral ; Note: Date Diagnosed : 09/08/2019 10:14 AM (H61.23) Not Available [facility] 4 03:23:05 Bilateral exostosis of external ear canals 24360647194 10729 Active 2018 Exostosis of external canal, bilateral ; Note: Date Diagnosed : 09/08/2019 12:53 PM (H61.813) Not Available [facility] 4 03:23:05 Simple obesity 814349020 Active 2018 Other obesity due to excess calories; Note: Date Diagnosed : 09/08/2019 10:14 AM (E66.09) Not Available [facility] 4 03:23:05 Problem Notes None recorded. [...] affected area 09/18 completed Medicati on ID: [id number] D uration Value: 5 Prescri bed By Name: Kylie villatoro MD Brand Name: Lotrison e Send Method: E-Prescr ibed Sub s Allowed: subs OK Medic ationGen ericName : Lotrison e Not Available Not Available Not Available clotrimaz ole-betam ethasone 1 %-0.05 % lotion Apply 1 a small amount to affected area twice a day 09/18 completed Medicati on ID: [id number] D uration Value: 5 Brand Name: Lotrison e Send Method: E-Prescr ibed Sub s Allowed: subs OK Medic ationGen ericName : Lotrison e Not Available Not Available Not Available lisinopri l 20 mg tablet 2018 active Medicati on ID: [id number] D uration Value: 90 Brand Name: lisinopr [...] Fish Oil 2018 active Medicati on ID: [id number] B rand Name: [employer] Send Method: E-Prescr ibed Sub s Allowed: [...] Disorder N Anesthesia Complications N Heart Attack ([place]) N Other Skin Condition N Diabetes Y Rhinitis N Bleeding Disorder N Food Allergy N Arthritis N Hearing Loss N Hyperlipidemia N Cancer N Stroke N Dementia N Nasal polyps N Asthma N Sleep Disorder Y GERD/Reflux N High Cholesterol N Liver Disease N Headaches N Fibromyalgia N Hypertension Y Speech Delay N Kidney Disease N Past Encounters Encounter ID Performer Location Encounter Start Date Encounter Closed Date Diagnosis/Indication Diagnosis SNOMED-CT Code Diagnosis ICD10 Code Diagnosis Note [id number] KYLIE HERNANDEZ MD [facility] [address] [address] 10/03/2024 12:06:09 10/03/2024 13:07:10 Bilateral exostosis of external ear canals [id number] 884820 H61.813 Health Concerns Section Related Observation LastModified by Organization Detai ls LastModified Time None Recorded Concern Status LastModified by Organization Details LastModified Time None Recorded Advance Directives Directive None Recorded Payers Insurance Date Sequence Insurance Name Policy Number Policy [place] Covered Member ID Putnam Member ID Guarantor Name 10/03/2024 1 [facility]: [facility] [id number] Tomas Garnica [id number] Tomas Garnica 10/03/2024 1 [employer] [id number] Tomas Garnica [id number] Tomas Garnica Notes Date Note Type Note Provider Name and Address Organization Details Recorded Time 10/03/2024 text/html No longer swimming due to ear infections.About 4 infections per year.Worse on the left.No Qtips PV: . Tyosa-niln-acv male presents today due to concern for polyps in his ears. He has a history of recurrent otitis externa. He is beenon multiple courses of medication for infections. His recently on oral antibiotics. He does swims frequently. KYLIE HERNANDEZ MD [address] [place] [address], [phone], [facility] - [facility] 10/03/2024 13:08:56
== END 2025-03-13 13:46 | disposition home or self-care (01) ==
LOC: HO.HUSH 12:39
PROVIDERS: PCP Physician Assistant; Visit Provider Urology
DX: R97.20 Elevated prostate specific antigen [PSA] (principal)

== ENCOUNTER → 2025-03-13 12:38 | Outpatient (BNVA) | payer BC, SELFPAY | PROVIDERS: PCP Physician Assistant; Visit Provider Urology | DX: R97.20 Elevated prostate specific antigen [PSA] (principal) | CPT/HCPCS: 81003 ==

== ENCOUNTER 2025-03-25 09:16 | Outpatient (AMB) | payer SELFPAY ==
--- NOTE | 2025-03-25 09:27 | A.OFFPC_ITS ---
Vital Signs 03/25/25 09:31 Height 6 ft 8 in Weight 411 lb 2 oz BMI 45.2 BP 132/72 Blood Pressure Location Lt brachial Position Sitting Respiration 14 Pulse 76 Pulse Source Pulse Oximeter Temp 97.8 F Temp Source Oral Pulse Oximetry (%) 96 Oxygen Delivery Method Room Air Intake Visit Reasons: dm Intake Note: Diabetes follow up Custodian Supervisor Required: No Allergies cats Allergy (Unknown, Uncoded 03/25/25 09:28) Sneezing Medication List - Last Reconciled 03/25/25 by Mikala Mclean PA-C clotrimazole-betamethasone 1-0.05 % 1 appl topical BID finasteride (Proscar) 5 mg PO DAILY Ozempic (semaglutide) 2 mg (0.75 mL) subcut QWEEK NS tamsulosin (Flomax) 0.4 mg PO DAILY Tobacco use date assessed: 03/25/25 Dental Screening Dental Screen Date: 03/25/25 Did you have a dental visit in the last 12 months?: Yes Did you have a dental problem in the last 6 months where you did not have access to dental care?: No Was dental information given to patient?: Patient has dentist HPI dm HPI Details Patient is a 63-year-old male who presents today with a significant past medical history hypertension, hyperlipidemia, obstructive sleep apnea, morbid obesity, diabetes presenting today for a follow up. HEENT: He gets frequent otitis externa is due to his ear polyps. He was referred to ENT. PULM: Following with Dr. Tuttle for his CPAP. CV: Blood pressure today is 132/72 and on lisinopril 30 mg daily. He has a dry cough from the lisinopril and tells me today that he is going to discontinue it and does not want to go on any antihypertensives. He states he is very careful with his diet Endo: Last A1c was 5.3 previously it was 7.4. He is on Ozempic 2 mg weekly. He has lost 11 lb since our last visit. uro: Was referred to urology for elevated PSA. Had renal ultrasound ordered by Urology and did show cysts that recommended CT or MRI with renal protocol. He states that they recommend he tries Flomax and proscar and rechecked PSA to see if it lowers. Colonoscopy: 10/24 diverticulosis, repeat in 10 years PSA-UTD, seeing urology [facility] Surgical History H/O arthroscopy Family History Mother HTN (hypertension) Lung cancer Social History Housing: House Alcohol intake: current Patient Tobacco Use Status: Never used Tobacco e-Cigarette/Vaping Use: Never Used Second Hand Smoke Exposure: No service: No Current occupational status: employed and retired Cognitive needs: No Hearing needs: No Vision needs: No Questionnaire PHQ-9 Over the last 2 weeks, how often have you been bothered by any of the following problems? 1. Little interest or pleasure in doing things: not at all 2. Feeling down, depressed, or hopeless: not at all 3. Trouble falling or staying asleep, or sleeping too much: not at all 4. Feeling tired or having little energy: not at all 5. Poor appetite or overeating: not at all 6. Feeling bad about yourself - or that you are a failure or have let yourself or your family down: not at all 7. Trouble concentrating on things, such as reading the newspaper or watching television: not at all 8. Moving or speaking so slowly that other people could have noticed. Or the opposite - being so fidgety or restless that you have been moving around a lot more than usual: not at all 9. Thoughts that you would be better off or of hurting yourself in some way: not at all Total score: 0 Source: Developed by Drs. Lio Desai, Brook Cabrales, Albert Ngo and colleagues, with an educational blanche from [employer]. Thrive Questionnaire Date Thrive assessed: 11/12/24 I am a: Patient What is your living situation today?: I have a steady place to live Within the past 12 months, did the food you bought not last and you didn't have the money to get more?: I choose not to answer this question Within the past 12 months, did you worry whether your food would run out before you got money to buy more?: I choose not to answer this question Do you have trouble paying for medicines?: I choose not to answer this question Do you have trouble getting transportation to medical appointments?: No Do you have trouble paying your heating and electricity bill?: I choose not to answer this question Do you have trouble taking care of your child, family member or friend?: No Do you have trouble with day-to-day activities such as bathing, preparing meals, shopping, managing finances, etc.?: No Are you currently unemployed and looking for a job?: I choose not to answer this question Are you interested in more education?: I choose not to answer this question Please select the resources that you would like help with: None Currently or been in a relationship where the following occur: I choose not to answer THRIVE Score: 0 AUDIT C Alcohol Use Questionnaire (AUDIT-C) 1. How often do you have a drink containing alcohol?: Never 3. How often do you have six or more drinks on one occasion?: Never Total Score: 0 Physical exam (Primary Care) Vital Signs: Last Vital Signs Temp 97.8 F 03/25/25 09:31 Pulse 76 03/25/25 09:31 Resp 14 03/25/25 09:31 BP 132/72 03/25/25 09:31 Pulse Ox 96 03/25/25 09:31 Oxygen Delivery Method Room Air 03/25/25 09:31 BMI result Body Mass Index 45.2 Tobacco/Smoking Status: Tobacco use Status Tobacco use date assessed 03/25/25 03/25/25 09:33 Patient Tobacco Use Status Never used Tobacco 03/25/25 09:27 e-Cigarette/Vaping Use Never Used 03/25/25 09:27 PHQ-9: PHQ-9 Score PHQ-9: Total score 0 03/25/25 09:27 Thrive Assessment: Date of Thrive Assessment Date Thrive assessed 11/12/24 03/25/25 09:27 Currently or been in a relationship where the following occur: I choose not to answer Const Orientation/consciousness: patient oriented x3 HENMT Ears: hearing grossly normal bilaterally Neck Thyroid: Thyroid normal Lymphatic: no lymphadenopathy noted Resp Auscultation: clear to auscultation bilaterally Cardio Rate: regular rate Rhythm: regular rhythm Heart sounds: S1 normal heart sound present and S2 normal heart sound present GI Inspection: Yes normal to inspection Palpation (GI): Soft to palpation and Other GI palpation findings present (nontender, no cva tenderness) Auscultation: normoactive bowel sounds Rectal Exam - Male: Yes deferred Skin General skin exam: no rashes or lesions noted Neuro General: patient oriented x3, gait normal and no focal motor deficits Results AMB Hemoglobin A1c AMB Hemoglobin A1c 5.2 % Last Edit by Antonina Pinzon CMA on 03/25/25 09:48 Results Reviewed Results Reviewed: Laboratory Tests 11/19/24 11/19/24 02/19/25 10:14 10:19 13:04 WBC 6.4 RBC 5.29 Hgb 16.5 Hct 48.8 Plt Count 226 Sodium 139 Potassium 4.1 Chloride 110 H Carbon Dioxide 22 Anion Gap 11 L BUN 14 Creatinine 0.75 Estimated GFR > 60 Fasting Glucose 96 Calcium 9.2 Total Bilirubin 1.0 AST 26 ALT 26 Alkaline Phosphatase 73 B-Natriuretic Peptide 14 Total Protein 7.3 Albumin 4.4 Triglycerides 101 Cholesterol 134 LDL Cholesterol, Calc 80 HDL Cholesterol 34 L PSA Screen 4.66 H TSH 1.43 Specific [place] (Auto) Urine Protein (Auto) Glucose (UA)(Auto) Urine Ketones (Auto) Urine Blood (Auto) Urine Nitrite (Auto) Urine Bilirubin (Auto) 03/13/25 13:57 WBC RBC Hgb Hct Plt Count Sodium Potassium Chloride Carbon Dioxide Anion Gap BUN Creatinine Estimated GFR Fasting Glucose Calcium Total Bilirubin AST ALT Alkaline Phosphatase B-Natriuretic Peptide Total Protein Albumin Triglycerides Cholesterol LDL Cholesterol, Calc HDL Cholesterol PSA Screen TSH Specific [place] (Auto) 1.020 Urine Protein (Auto) 1 Glucose (UA)(Auto) 0 Urine Ketones (Auto) Negative Urine Blood (Auto) 0 Urine Nitrite (Auto) Negative Urine Bilirubin (Auto) 0 Impression: 1. Bilateral renal cortical cysts can be better evaluated with a CT or MRI with and without contrast renal protocol study. Coding Level of Care Code Est Pt Level 4 (67254) Complex EM visit Add On G2211 Diagnoses Controlled type 2 diabetes mellitus without complication, without long-term current use of insulin E11.9 Diabetes mellitus intermodal customer service insulin use: without intermodal customer service use Diabetes mellitus complication status: without complication HTN (hypertension) I10 Severe obesity (BMI >= 40) E66.01 Dyslipidemia E78.5 Renal cyst N28.1 Assessment & Plan Assessment & Plan (1) Controlled type 2 diabetes mellitus: Code(s): E11.9 - Type 2 diabetes mellitus without complications Category: Medical Qualifiers: Diabetes mellitus [facility] insulin use: without [facility] use Diabetes mellitus complication status: without complication Qualified Code(s): E11.9 - Type 2 diabetes mellitus without complications Plan: Continue Ozempic. We will monitor labs (2) HTN (hypertension): Code(s): I10 - Essential (primary) hypertension Category: Medical Plan: He will discontinue the lisinopril and do his best to monitor blood pressures at home. Reviewed that he will likely need another medication. Short term follow up in 2-4 weeks. Sooner if needed. (3) Severe obesity (BMI >= 40): Code(s): E66.01 - Morbid (severe) obesity due to excess calories Category: Medical Plan: Has lost weight. Encouraged him to continue with lifestyle modifications. (4) Dyslipidemia: Code(s): E78.5 - Hyperlipidemia, unspecified Category: Medical Plan: Currently managed by diet and doing well. (5) Renal cyst: Code(s): N28.1 - Cyst of kidney, acquired Category: Medical Plan: ct ordered per rad rec Orders: Orders AMB Hemoglobin A1c Today E11.9 - Type 2 diabetes mellitus without complications Hemoglobin A1c Today E11.9 - Type 2 diabetes mellitus without complications, E66.01 - Morbid (severe) obesity due to excess calories, E78.5 - Hyperlipidemia, unspecified, I10 - Essential (primary) hypertension, R73.01 - Impaired fasting glucose Complete Blood Count Auto Diff Today E11.9 - Type 2 diabetes mellitus without complications, E66.01 - Morbid (severe) obesity due to excess calories, E78.5 - Hyperlipidemia, unspecified, I10 - Essential (primary) hypertension Comprehensive [place]. Panel Fast Today E11.9 - Type 2 diabetes mellitus without complications, E66.01 - Morbid (severe) obesity due to excess calories, E78.5 - Hyperlipidemia, unspecified, I10 - Essential (primary) hypertension Microalbumin, Random (w Creat) Today E11.9 - Type 2 diabetes mellitus without complications, E66.01 - Morbid (severe) obesity due to excess calories, E78.5 - Hyperlipidemia, unspecified, I10 - Essential (primary) hypertension CT abdomen pelvis wo/w IV con Today N28.1 - Cyst of kidney, acquired, R97.20 - Elevated prostate specific antigen [PSA] Medications: Refilled wosjyqay-wsjrvivpn-FH 3.5-10,000-1 mg/mL-unit/mL-% 4 ps otic (ear) left Q8H 10 mL 0RF 10 days Discontinued lisinopril Discontinued Reason: Doctor's Order 30 mg PO DAILY 90 tabs 3RF
[2025-03-25 09:31] VITALS: BP 132/72; PULSE 76; RESP 14; TEMP 36.6; O2SAT 96; BMI 45.2
== END 2025-03-25 10:20 | disposition home or self-care (01) ==
LOC: HO.HMCFM 09:17
PROVIDERS: PCP Physician Assistant; Visit Provider Physician Assistant
DX: E11.69 Type 2 diabetes mellitus with other specified complication (principal); I10 Essential (primary) hypertension; E66.01 Morbid (severe) obesity due to excess calories; Z68.42 Body mass index [BMI] 45.0-49.9, adult; E78.5 Hyperlipidemia, unspecified; N28.1 Cyst of kidney, acquired

== ENCOUNTER → 2025-03-25 09:16 | Outpatient (BNVA) | payer MEDICARE, SELFPAY | PROVIDERS: PCP Physician Assistant; Visit Provider Physician Assistant | DX: E11.9 Type 2 diabetes mellitus without complications (principal); I10 Essential (primary) hypertension; E78.5 Hyperlipidemia, unspecified; E66.01 Morbid (severe) obesity due to excess calories; G47.33 Obstructive sleep apnea (adult) (pediatric); N28.1 Cyst of kidney, acquired; Z68.42 Body mass index [BMI] 45.0-49.9, adult; Z99.89 Dependence on other enabling machines and devices | CPT/HCPCS: 83036; 96127; 99212 ==

== ENCOUNTER 2025-04-22 09:49 | Outpatient (REF) | payer MEDICARE, SELFPAY ==
--- OUTSIDE RECORDS SUMMARY | 2025-04-22 10:27 | XMS_ITS | Data Portability ---
Author Organization [place] [facility], Allergy Address [address] [address] Care Team Providers Care Indexer Name Role Phone BERTHA ANDRE Primary Care Provider [phone] Assessment Encounter Date Assessment Date Assessment LastModified by Organization Details LastModified Time 10/03/2024 10/03/2024 There are prominent exostoses bilaterally, but not so severe that I cannot see the TM. There is no obstructive cerumen or evidence of active infection today. I did recommend using white vinegar rubbing alcohol drops at least once a week for preventative maintenance. He can use a hair assistant on low if he has any moisture [...] Name and Address Organization Details Recorded Time Impacted cerumen of bilateral ears [id number] 94468 Active 2018 Impacted cerumen, bilateral ; Note: Date Diagnosed : 09/08/2019 10:14 AM (H61.23) Not Available [facility] 4 03:23:05 Bilateral exostosis of external ear canals 97480476744 39018 Active 2018 Exostosis of external canal, bilateral ; Note: Date Diagnosed : 09/08/2019 12:53 PM (H61.813) Not Available [facility] 4 03:23:05 Simple obesity 789805518 Active 2018 Other obesity due to excess calories; Note: Date Diagnosed : 09/08/2019 10:14 AM (E66.09) Not Available [facility] 4 03:23:05 Bilateral external auditory canal chronic otitis externa 29389491575 23732 Active 2021 Unspecifi ed chronic otitis externa, bilateral ; Note: Date Diagnosed : 04/05/2022 3:33 PM (H60.63) Not Available [facility] 4 03:23:05 Problem Notes None recorded. Medical [...] affected area 09/18 completed Medicati on ID: [id number] D uration Value: 5 Prescri bed By Name: Kylie villatoro MD Brand Name: Lotrison e Send Method: E-Prescr ibed Sub s Allowed: subs OK Medic ationGen ericName : Lotrison e Not Available Not Available Not Available clotrimaz ole-betam ethasone 1 %-0.05 % lotion Apply 1 a small amount to affected area twice a day 09/18 completed Medicati on ID: [id number] D uration Value: 5 Brand Name: Lotrison e Send Method: E-Prescr ibed Sub s Allowed: subs OK Medic ationGen ericName : Lotrison e Not Available Not Available Not Available lisinopri l 20 mg tablet 2018 active Medicati on ID: [id number] D uration Value: 90 Brand Name: lisinopr [...] Fish Oil 2018 active Medicati on ID: [id number] B rand Name: [employer] Send Method: E-Prescr ibed Sub s Allowed: [...] Disorder N Anesthesia Complications N Heart Attack ([place]) N Other Skin Condition N Diabetes Y [...] SNOMED-CT Code Diagnosis ICD10 Code Diagnosis Note [id number] KYLIE HERNANDEZ MD [facility] [address] [address] 10/03/2024 12:06:09 10/03/2024 13:07:10 Bilateral exostosis of external ear canals [id number] 056836 H61.813 Health Concerns Section Related Observation LastModified by Organization Detai ls LastModified Time None Recorded Concern Status LastModified by Organization Details LastModified Time None Recorded Advance Directives Directive None Recorded Payers Insurance Date Sequence Insurance Name Policy Number Policy Putnam Covered Member ID Putnam Member ID Guarantor Name 10/03/2024 1 [facility] [id number] Tomas Garnica [id number] Tomas Garnica 10/03/2024 1 [employer] [id number] Tomas Garnica [id number] Tomas Garnica Notes Date Note Type Note Provider Name and Address Organization Details Recorded Time 10/03/2024 text/html No longer swimming due to ear infections.About 4 infections per year.Worse on the left.No Qtips PV: . Qsypi-xwrf-gkt male presents today due to concern for polyps in his ears. He has a history of recurrent otitis externa. He is beenon multiple courses of medication for infections. His recently on oral antibiotics. He does swims frequently. KYLIE HERNANDEZ MD [address] [place] [address], [phone], [facility] - [facility] 10/03/2024 13:08:56
--- OUTSIDE RECORDS SUMMARY | 2025-04-22 10:27 | XMS_ITS | Patient Health Record ---
Author Organization [facility] Address [address] [place] [address] Care Team Providers Care Car Ferrier Name Role Phone Daiana ALEXANDER, Dean Primary Care Provider Lio Castañeda Unavailable [phone] Reason For Referral No Information Problems Problem Type SNOMED Code ICD Code Onset Dates Problem Status W/U Status Risk Notes Problem Diverticular disease of colon (833610573) Colon, diverticulosis (562.10) Active confirmed Problem Right upper quadrant pain (832683722) Abdominal discomfort in right upper quadrant (789.01) Active confirmed Plan Of Treatment Pending Test Test Name Order Date LIVER PROFILE 04/09/2012 AMYLASE 04/09/2012 LIPASE 04/09/2012 CBC w DIFF 04/09/2012 URINALYSIS (UA) 04/09/2012 Insurance Providers Payer Name Payer Address Payer Phone Subscriber Number Group Number Insured Name Patient Relationship to Insured Coverage Start Date Coverage End Date [facility] [address] [place], [place] [id number] ALEJO IBARRA Self - patient is the insured Medical (General) History Medical History History ICD Code Denies HI,DM,CVA,Lung disease,renal dise ase Colonoscopy in 2006-neg. except for dive rticulosis of sigmoid colon Surgical History Surgery Date(Month/Year) Tonsils
[2025-04-22 11:21] LABS: MANUAL DIFF FLAG NO
[2025-04-22 11:24] LABS: Hematocrit 47.3 % (42.0-52.0); Hemoglobin 16.3 g/dl (14.0-18.0); Imm Gran Abs Auto 0.03 X10*3/uL (0.00-0.03); Imm Gran Pct Auto 0.6 % (0.0-0.4); Lymphocytes Absolute Auto 1.6 X10*3/uL (1.2-4.9); Mean Corpuscular HGB Conc 34.5 g/dl (31.0-36.0); Mean Corpuscular Hemoglobin 31.5 pg (27.0-33.0); Mean Corpuscular Volume 91.5 fL (80.0-98.0); NRBC Abs Auto 0.000 X10*3/uL (0.0-0.012); NRBC Pct Auto 0.0 /100WBC (0.0-0.2); Platelet Count 204 X10*3/uL (160-400); Red Blood Count 5.17 X10*6/uL (4.60-5.80); White Blood Count 5.4 X10*3/uL (4.8-10.8)
[2025-04-22 11:35] LABS: Hemoglobin A1C 133.0964 umol/L; Total Hemoglobin (HGBA1C) 4155.7633 umol/L
[2025-04-22 11:43] LABS: Alanine Aminotransferase 27 U/L (0-40); Albumin Level 4.3 g/dL (3.5-5.0); Alkaline Phosphatase 68 U/L (39-117); Anion Gap 11 (12-20); Aspartate Amino Transferase 26 U/L (5-37); Blood Urea Nitrogen 15 mg/dL (9-16); Calcium 8.5 mg/dL (8.4-10.2); Carbon Dioxide 22 mmol/L (22-29); Chloride 110 mmol/L (96-108); Estimated Glomerular Filt Rate > 60; Potassium 4.2 mmol/L (3.3-5.1); Sodium 139 mmol/L (135-145); Total Protein 6.6 g/dL (6.5-8.0)
[2025-04-22 11:57] LABS: Microalbum/Creatinine Ratio Ur 6.9 ug/mg cr (<30)
== END 2025-04-22 09:50 | disposition home or self-care (01) ==
LOC: HO.WFDLDS 09:49
PROVIDERS: Visit Provider Physician Assistant
DX: I10 Essential (primary) hypertension (principal); E11.9 Type 2 diabetes mellitus without complications; E66.01 Morbid (severe) obesity due to excess calories; E78.5 Hyperlipidemia, unspecified
CPT/HCPCS: 36415; 80053; 82043; 82570; 83036; 85025

== ENCOUNTER 2025-04-30 07:34 | Outpatient (REF) | payer MEDICARE, SELFPAY ==
--- NOTE | ~2025-04-30 | CT_ITS ---
CLINICAL HISTORY: N28.1 - Cyst of kidney, acquired --- Additional Notes or Special Instructions: renal mass protocol CT abdomen and pelvis with and without contrast Comparison: None Findings: Examination is limited by suboptimal contrast enhancement. The visualized portions of the lungs are normal in appearance. The liver is normal in size without suspicious focal hepatic lesions. 5 cm cyst in the left lobe of the liver. No intrahepatic or extrahepatic ductal dilatation is seen. The hepatic and portal veins are patent. Cholecystectomy. Pancreas, spleen and adrenals are normal in appearance. No suspicious focal lesion of the kidneys. No hydronephrosis or calculi. 8.3 cm cyst in the right kidney: Pre contrast-5 Hounsfield unit and post-contrast 5.6 Hounsfield unit. There are cortical cysts and peripelvic cyst of the left kidney. No abnormal mural nodule, contrast enhancement, calcification or septation of the cystic lesions. The abdominal aorta demonstrates no evidence of aneurysmal dilatation or dissection. The colon is without wall thickening or inflammatory change. Colonic diverticulosis. No evidence of bowel obstruction. Appendix is normal. There is enlargement of the prostate gland. No intraperitoneal free air or fluid is visualized. No pathologic lymphadenopathy is seen. There are no osseous or soft tissue abnormalities. IMPRESSION: Bilateral renal cysts without suspicious feature. Ultrasound follow-up as indicated. Colonic diverticulosis. This document has been electronically signed by: Twila Thacker MD on 04/30/2025 16:20:45
--- OUTSIDE RECORDS SUMMARY | 2025-04-30 07:37 | XMS_ITS | Patient Health Record ---
Author Organization [facility] Address [address] [place] [address] Care Team Providers Care Traffic Investigator Name Role Phone Daiana ALEXANDER, Dean Primary Care Provider Lio Castañeda Unavailable [phone] Reason For Referral No Information Problems Problem Type SNOMED Code ICD Code Onset Dates Problem Status W/U Status Risk Notes Problem Diverticular disease of colon (203351385) Colon, diverticulosis (562.10) Active confirmed Problem Right upper quadrant pain (842325623) Abdominal discomfort in right upper quadrant (789.01) Active confirmed Plan Of Treatment Pending Test Test Name Order Date LIVER PROFILE 04/09/2012 AMYLASE 04/09/2012 LIPASE 04/09/2012 CBC w DIFF 04/09/2012 URINALYSIS (UA) 04/09/2012 Insurance Providers Payer Name Payer Address Payer Phone Subscriber Number Group Number Insured Name Patient Relationship to Insured Coverage Start Date Coverage End Date [facility] [address] [place], [place] [id number] [phone] [id number] ALEJO IBARRA Self - patient is the insured Medical (General) History Medical History History ICD Code Denies ME,DM,CVA,Lung disease,renal dise ase Colonoscopy in 2006-neg. except for dive rticulosis of sigmoid colon Surgical History Surgery Date(Month/Year) Tonsils
[2025-04-30] MEDS: iohexoL 350 MG/ML 100 ML INFUS..BTL IV (08:42)
== END 2025-04-30 07:35 | disposition home or self-care (01) ==
LOC: HO.CT 07:34
PROVIDERS: PCP Physician Assistant; Visit Provider Physician Assistant
DX: N28.1 Cyst of kidney, acquired (principal); R97.20 Elevated prostate specific antigen [PSA]
CPT/HCPCS: 74178; Q9967

== ENCOUNTER → 2025-04-30 07:35 | Outpatient (BNV) | payer MEDICARE, SELFPAY | PROVIDERS: PCP Physician Assistant; Visit Provider Nuclear Medicine | DX: N28.1 Cyst of kidney, acquired (principal) | CPT/HCPCS: 74178 ==

== ENCOUNTER 2025-06-03 10:22 | Outpatient (REF) | payer MEDICARE, SELFPAY ==
[2025-06-03 14:40] LABS: Prostate Specific Antigen 3.00 ng/mL (<0.05-4.0)
== END 2025-06-03 10:23 | disposition home or self-care (01) ==
LOC: HO.WFDLDS 10:22
PROVIDERS: Visit Provider Urology
DX: R97.20 Elevated prostate specific antigen [PSA] (principal); Z12.5 Encounter for screening for malignant neoplasm of prostate
CPT/HCPCS: 36415; 84153

== ENCOUNTER 2025-06-08 10:12 | Outpatient (AMB) | payer MEDICARE, SELFPAY ==
--- NOTE | 2025-06-08 10:13 | A.OFFVIS_ITS ---
Intake Visit Reasons: 3m/PSA Intake Note: Patient presents today via telehealth for 3m follow up/PSA * 06/03 PSA:3.00 Urology Medication:none Blood Thinner:none Antibiotic Allergies:none Allergies cats Allergy (Unknown, Uncoded 03/25/25 09:28) Sneezing Medication List - Last Reconciled 06/08/25 by Ramsey Middleton MD clotrimazole-betamethasone 1-0.05 % 1 appl topical BID finasteride (Proscar) 5 mg PO DAILY vsndzzmg-ibovhunfx-MA 3.5-10,000-1 mg/mL-unit/mL-% 4 drps otic (ear) left Q8H 10 days Ozempic (semaglutide) 2 mg (0.75 mL) subcut QWEEK NS tamsulosin (Flomax) 0.4 mg PO DAILY HPI Comments Details: 06/08/25--Tomas is being followed for BPH and elevated PSA. The patient was last evaluated on 03/13/2025 he is prescribed Proscar 5 mg daily and tamsulosin. Repeat PSA on 06/03/2025 was 3.0 down from 4.66. Continue Proscar and tamsulosin. Repeat PSA in 6 months. History of Present Illness The patient is a 64-year-old male presenting with Benign Prostatic Hyperplasia and elevated Prostate-Specific Antigen levels. The patient has been under treatment with Proscar 5 mg daily and tamsulosin, which he has been taking consistently. His Prostate-Specific Antigen level was previously 4.66 and has decreased to 3.0 as of the latest test on June 03, 2025. The patient reports adherence to his medication regimen but mentioned running low on one of the medications, which will be refilled. Results - Prostate-Specific Antigen level on 06/03/2025: 3.0 (previously 4.66) 03/13/25--Discussed US results. Bilateral renal cortical cysts. Repeat PSA pending. 01/12/25--The patient is a 64-year-old male presenting with an elevated prostate- specific antigen (PSA) level. He was referred due to a PSA test result showing a level of 4.66, which exceeds BPHthe normal range (0-4). This is the first known elevation, and the patient was not previously familiar with the PSA test or its implications. 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 The patient reports frequent nocturia, urinating multiple times at night, and has a history of taking tamsulosin but has recently run out. His medical history is significant for type 2 diabetes mellitus, which he claims is well-controlled. Urinary Symptoms Review - Frequent nocturia, needing to urinate 3-4 times per night. - Recent cessation of tamsulosin, which had been prescribed to aid urine flow. - Complaints of recurring penile infection; previously treated with a cream which has been depleted. - Previous urology management at [place] with an unknown practitioner. Results - PSA: 4.66, above normal range of 0-4. PFSH Surgical History H/O arthroscopy Family History Mother HTN (hypertension) Lung cancer Social History Housing: House Alcohol intake: current Patient Tobacco Use Status: Never used Tobacco e-Cigarette/Vaping Use: Never Used Second Hand Smoke Exposure: No service: No Current occupational status: employed and retired Cognitive needs: No Hearing needs: No Vision needs: No Review of Systems Const All systems reviewed & are unremarkable except as noted in HPI and below Reports no additional complaints Eyes Reports no additional complaints ENT Reports no additional complaints Card Reports no additional complaints Resp Reports no additional complaints GI Reports no additional complaints Reports as per HPI Musc Reports no additional complaints Skin/Breast Reports system reviewed and no additional complaints, except as documented Neuro Reports no additional complaints Psych Reports no additional complaints Endo Reports no additional complaints Pj/Lymph Reports no additional complaints Aller/Immun Reports no additional complaints Telehealth Telehealth Telehealth Platform: [facility] Location of provider rendering services: practice address Location of patient: address on file Patient Identification confirmed using: Name, : Yes Telehealth method: video Patient verbally consented to treatment: Yes Patient verbally consented to billing insurance company: Yes Patient informed of any privacy concerns related to visit: Yes Assessment & Plan Assessment & Plan (1) BPH loc w urin obs/LUTS: Code(s): N40.1 - Benign prostatic hyperplasia with lower urinary tract symptoms Category: Medical (2) Elevated PSA: Code(s): R97.20 - Elevated prostate specific antigen [PSA] Category: Medical Plan Continue tamsulosin and proscar 5 mg daily. Repeat PSA in 6 months Orders: Orders PSA,Total (Free>4and<10) 6 Months R97.20 - Elevated prostate specific antigen [PSA] Medications: Refilled tamsulosin (Flomax) 0.4 mg PO DAILY 90 caps 3RF finasteride (Proscar) 5 mg PO DAILY 90 tabs 3RF Patient Instructions: The patient had an opportunity to ask questions regarding treatment plan. The patient expressed understanding and agreement with the above treatment plan. The patient is aware they should contact our office by phone for worsening of their current condition or the appearance of new symptoms. Compliance is encouraged with any medications and followup testing that is ordered. It is a privilege to be allowed the opportunity to participate in the urologic care of your patient. If you have any questions or concerns regarding treatment for the above conditions please do not hesitate to contact me. The office telephone contact is [phone]. This note is constructed in part using voice recognition software. While every effort has been made to ensure accuracy connie scratcher errors may have been included. Yours sincerely, Ramsey Middleton MD Coding Level of Care Code Tele Est Pt Level 3 (25166) Diagnoses BPH loc w urin obs/LUTS N40.1 Elevated PSA R97.20
--- OUTSIDE RECORDS SUMMARY | 2025-06-08 12:05 | XMS_ITS | Patient Health Record ---
Author Organization [facility] Address [address] [place] [address] Care Team Providers Care Director [employer] Name Role Phone Daiana ALEXANDER, Dean Primary Care Provider Lio Castañeda Unavailable [phone] Reason For Referral No Information Problems Problem Type SNOMED Code ICD Code Onset Dates Problem Status W/U Status Risk Notes Problem Diverticular disease of colon (251949349) Colon, diverticulosis (562.10) Active confirmed Problem Right upper quadrant pain (082339242) Abdominal discomfort in right upper quadrant (789.01) Active confirmed Plan Of Treatment Pending Test Test Name Order Date LIVER PROFILE 04/09/2012 AMYLASE 04/09/2012 LIPASE 04/09/2012 CBC w DIFF 04/09/2012 URINALYSIS (UA) 04/09/2012 Insurance Providers Payer Name Payer Address Payer Phone Subscriber Number Group Number Insured Name Patient Relationship to Insured Coverage Start Date Coverage End Date [facility] [address] [place], [place] [id number] ALEJO IBARRA Self - patient is the insured Medical (General) History Medical History History ICD Code Denies DC,DM,CVA,Lung disease,renal dise ase Colonoscopy in 2006-neg. except for dive rticulosis of sigmoid colon Surgical History Surgery Date(Month/Year) Tonsils
== END 2025-06-08 11:03 | disposition home or self-care (01) ==
LOC: HO.HUSH 10:12
PROVIDERS: PCP Physician Assistant; Visit Provider Urology
DX: N40.1 Benign prostatic hyperplasia with lower urinary tract symptoms (principal); R97.20 Elevated prostate specific antigen [PSA]
CPT/HCPCS: 99213

== ENCOUNTER 2025-09-02 08:25 | Outpatient (AMB) | payer MEDICARE, SELFPAY ==
--- NOTE | 2025-09-02 08:27 | MHC.PC.OV ---
Vital Signs 09/02/25 08:32 09/02/25 08:41 Height 6 ft 8 in Weight 426 lb 4 oz BMI 46.8 BP 154/76 H 161/81 H Blood Pressure Location Lt brachial Lt brachial Position Sitting Sitting Respiration 16 Pulse 82 Pulse Source Pulse Oximeter Temp 97.3 F Temp Source Temporal Artery Scan Pulse Oximetry (%) 95 Oxygen Delivery Method Room Air Intake Visit Reasons: med/labs Intake Note: Medication and lab follow up Supervisor Wrapping Room Required: No Allergies cats Allergy (Unknown, Uncoded 09/02/25 08:27) Sneezing Medication List - Last Reconciled 09/02/25 by Mikala Mclean PA-C finasteride (Proscar) 5 mg PO DAILY dhxqrkbn-wqwarwkxs-OK 3.5-10,000-1 mg/mL-unit/mL-% 4 drps otic (ear) left Q8H 10 days Ozempic (semaglutide) 2 mg (0.75 mL) subcut QWEEK NS tamsulosin (Flomax) 0.4 mg PO DAILY Tobacco use date assessed: 09/02/25 Dental Screening Dental Screen Date: 03/25/25 HPI med/labs HPI Details Patient is a 64-year-old male who presents today with a significant past medical history hypertension, hyperlipidemia, obstructive sleep apnea, morbid obesity, controlled t2dm presenting today for a follow up. HEENT: He gets frequent otitis externa is due to his ear polyps. He was referred to ENT. PULM: Following with Dr. Tuttle for his CPAP. CV: Blood pressure today is 154/76 and 161/81. He was previously on lisinopril 30 mg daily but developed a dry cough from it. He was supposed to follow up short term (2 weeks) but did not. He states he has been a little less careful with his diet over the holiday season. Endo: Last A1c was 5.3. BS at home 94. He is on Ozempic 2 mg weekly. He has gained 15 lb since our last visit. He has not noted much appetite suppression. Metformin caused GI upset, trulicity he thinks he was on at [facility] and caused nausea. Ozempic he thinks is ineffective. uro: Was referred to urology for elevated PSA. Had renal ultrasound ordered by Urology and did show cysts that recommended CT which then appear benign and recommended follow up u/s. He states that they recommend he tries Flomax and proscar and rechecked PSA was improved. Colonoscopy: 10/24 diverticulosis, repeat in 10 years PSA-UTD, seeing urology [facility] Surgical History H/O arthroscopy Family History Mother HTN (hypertension) Lung cancer Social History Housing: House Alcohol intake: current Patient Tobacco Use Status: Never used Tobacco e-Cigarette/Vaping Use: Never Used Second Hand Smoke Exposure: No service: No Current occupational status: employed and retired Cognitive needs: No Hearing needs: No Vision needs: No Questionnaire Thrive Questionnaire Date Thrive assessed: 11/12/24 I am a: Patient What is your living situation today?: I have a steady place to live Within the past 12 months, did the food you bought not last and you didn't have the money to get more?: I choose not to answer this question Within the past 12 months, did you worry whether your food would run out before you got money to buy more?: I choose not to answer this question Do you have trouble paying for medicines?: I choose not to answer this question Do you have trouble getting transportation to medical appointments?: No Do you have trouble paying your heating and electricity bill?: I choose not to answer this question Do you have trouble taking care of your child, family member or friend?: No Do you have trouble with day-to-day activities such as bathing, preparing meals, shopping, managing finances, etc.?: No Are you currently unemployed and looking for a job?: I choose not to answer this question Are you interested in more education?: I choose not to answer this question Please select the resources that you would like help with: None Currently or been in a relationship where the following occur: I choose not to answer THRIVE Score: 0 AUDIT C Alcohol Use Questionnaire (AUDIT-C) 1. How often do you have a drink containing alcohol?: 2-4 times a month (once a week) 2. How many drinks containing alcohol do you have on a typical day when you are drinking?: 1 or 2 3. How often do you have six or more drinks on one occasion?: Never Total Score: 2 Physical exam (Primary Care) Tobacco/Smoking Status: Tobacco use Status Tobacco use date assessed 09/02/25 09/02/25 08:27 Patient Tobacco Use Status Never used Tobacco 09/02/25 08:27 e-Cigarette/Vaping Use Never Used 09/02/25 08:27 Thrive Assessment: Date of Thrive Assessment Date Thrive assessed 11/12/24 09/02/25 08:27 Currently or been in a relationship where the following occur: I choose not to answer Const Orientation/consciousness: patient oriented x3 HENMT Ears: hearing grossly normal bilaterally Neck Thyroid: Thyroid normal Lymphatic: no lymphadenopathy noted Resp Auscultation: clear to auscultation bilaterally Cardio Rate: regular rate Rhythm: regular rhythm Heart sounds: S1 normal heart sound present and S2 normal heart sound present GI Inspection: Yes normal to inspection Palpation (GI): Soft to palpation and Other GI palpation findings present (nontender, no cva tenderness) Auscultation: normoactive bowel sounds Rectal Exam - Male: Yes deferred Skin General skin exam: no rashes or lesions noted Neuro General: patient oriented x3, gait normal and no focal motor deficits Results Reviewed Results Reviewed: Laboratory Tests 02/19/25 03/25/25 04/22/25 13:04 09:42 09:51 WBC 5.4 RBC 5.17 Hgb 16.3 Hct 47.3 Plt Count 204 Estimated GFR > 60 Fasting Glucose 98 Hgb A1c (Clinic) 5.2 Hemoglobin A1c % 5.1 Calcium 8.5 D AST 26 ALT 27 Alkaline Phosphatase 68 Total Protein 6.6 Albumin 4.3 Triglycerides 101 Cholesterol 134 LDL Cholesterol, Calc 80 HDL Cholesterol 34 L Prostate Specific Ag TSH 1.43 Urine Creatinine Urine Microalbumin Microalb/Creat Ratio 04/22/25 06/03/25 09:58 10:23 WBC RBC Hgb Hct Plt Count Estimated GFR Fasting Glucose Hgb A1c (Clinic) Hemoglobin A1c % Calcium AST ALT Alkaline Phosphatase Total Protein Albumin Triglycerides Cholesterol LDL Cholesterol, Calc HDL Cholesterol Prostate Specific Ag 3.00 TSH Urine Creatinine 115.08 Urine Microalbumin 8.0 Microalb/Creat Ratio 6.9 IMPRESSION: Bilateral renal cysts without suspicious feature. Ultrasound follow-up as indicated. Colonic diverticulosis. Coding Level of Care Code Est Pt Level 4 (02014) Complex visit Add On G2211 Diagnoses Controlled type 2 diabetes mellitus E11.9 HTN (hypertension) I10 Severe obesity (BMI >= 40) E66.01 Dyslipidemia E78.5 Renal cyst N28.1 Assessment & Plan Assessment & Plan (1) Controlled type 2 diabetes mellitus: Code(s): E11.9 - Type 2 diabetes mellitus without complications Category: Medical Plan: We will try switching to Mounjaro to see if this improves appetite suppression and weight loss. Labs ordered today. We discussed risks and benefits and adverse effects of this medication. If he is unable to tolerate we will switch back to Ozempic as diabetes is well-controlled (2) HTN (hypertension): Code(s): I10 - Essential (primary) hypertension Category: Medical Plan: We will start amlodipine. Discussed risks and benefits and adverse effects of this medication (3) Severe obesity (BMI >= 40): Code(s): E66.01 - Morbid (severe) obesity due to excess calories Category: Medical Plan: Encouraged him to continue with lifestyle modifications. (4) Dyslipidemia: Code(s): E78.5 - Hyperlipidemia, unspecified Category: Medical Plan: Currently managed by diet. We will rechecked. Does not like the idea of taking statins. (5) Renal cyst: Code(s): N28.1 - Cyst of kidney, acquired Category: Medical Plan: Reviewed CT with patient Follows with urology Orders: Orders Comprehensive [place]. Panel Fast Today E11.9 - Type 2 diabetes mellitus without complications, E66.01 - Morbid (severe) obesity due to excess calories, E78.5 - Hyperlipidemia, unspecified, I10 - Essential (primary) hypertension, N28.1 - Cyst of kidney, acquired Lipid Panel Today E11.9 - Type 2 diabetes mellitus without complications, E66.01 - Morbid (severe) obesity due to excess calories, E78.5 - Hyperlipidemia, unspecified, I10 - Essential (primary) hypertension, N28.1 - Cyst of kidney, acquired UA CC w/rflx Micro + Cult Today E11.9 - Type 2 diabetes mellitus without complications, E66.01 - Morbid (severe) obesity due to excess calories, E78.5 - Hyperlipidemia, unspecified, I10 - Essential (primary) hypertension, N28.1 - Cyst of kidney, acquired, R30.0 - Dysuria Microalbumin, Random (w Creat) Today E11.9 - Type 2 diabetes mellitus without complications, E66.01 - Morbid (severe) obesity due to excess calories, E78.5 - Hyperlipidemia, unspecified, I10 - Essential (primary) hypertension, N28.1 - Cyst of kidney, acquired Complete Blood Count Auto Diff Today E11.9 - Type 2 diabetes mellitus without complications, E66.01 - Morbid (severe) obesity due to excess calories, E78.5 - Hyperlipidemia, unspecified, I10 - Essential (primary) hypertension, N28.1 - Cyst of kidney, acquired TSH reflex Free T4 Today E11.9 - Type 2 diabetes mellitus without complications, E66.01 - Morbid (severe) obesity due to excess calories, E78.5 - Hyperlipidemia, unspecified, I10 - Essential (primary) hypertension, N28.1 - Cyst of kidney, acquired Hemoglobin A1c Today E11.9 - Type 2 diabetes mellitus without complications, E66.01 - Morbid (severe) obesity due to excess calories, E78.5 - Hyperlipidemia, unspecified, I10 - Essential (primary) hypertension, N28.1 - Cyst of kidney, acquired, R73.01 - Impaired fasting glucose Medications: New tirzepatide (Mounjaro) 2.5 mg (0.5 mL) subcut QWEEK 2 mL 3RF Discontinued Ozempic (semaglutide) Discontinued Reason: Duplicate 2 mg (0.75 mL) subcut QWEEK 9 mL 3RF NS E11.9 - Type 2 diabetes mellitus without complications
[2025-09-02 08:32] VITALS: BP 154/76; PULSE 82; RESP 16; TEMP 36.3; O2SAT 95; BMI 46.8
[2025-09-02 08:41] VITALS: BP 161/81
== END 2025-09-02 09:25 | disposition home or self-care (01) ==
LOC: HO.HMCFM 08:25
PROVIDERS: PCP Physician Assistant; Visit Provider Physician Assistant
DX: E11.9 Type 2 diabetes mellitus without complications (principal); E66.01 Morbid (severe) obesity due to excess calories; Z68.42 Body mass index [BMI] 45.0-49.9, adult; I10 Essential (primary) hypertension; E78.5 Hyperlipidemia, unspecified; N28.1 Cyst of kidney, acquired

== ENCOUNTER 2025-09-02 08:25 | Outpatient (REF) | payer MEDICARE, SELFPAY ==
[2025-09-02 11:21] LABS: MANUAL DIFF FLAG NO
[2025-09-02 11:28] LABS: Hematocrit 46.8 % (42.0-52.0); Hemoglobin 16.0 g/dl (14.0-18.0); Imm Gran Abs Auto 0.04 X10*3/uL (0.00-0.03); Imm Gran Pct Auto 0.7 % (0.0-0.4); Lymphocytes Absolute Auto 1.3 X10*3/uL (1.2-4.9); Mean Corpuscular HGB Conc 34.2 g/dl (31.0-36.0); Mean Corpuscular Hemoglobin 30.8 pg (27.0-33.0); Mean Corpuscular Volume 90.2 fL (80.0-98.0); NRBC Abs Auto 0.000 X10*3/uL (0.0-0.012); NRBC Pct Auto 0.0 /100WBC (0.0-0.2); Platelet Count 187 X10*3/uL (160-400); Red Blood Count 5.19 X10*6/uL (4.60-5.80); White Blood Count 5.8 X10*3/uL (4.8-10.8)
[2025-09-02 11:31] LABS: Appearance Urine Cloudy; Glucose Urine UA Negative (Negative); PH 5.5 (5.0-9.0); Specific Gravity - Urine 1.025 (1.005-1.025)
[2025-09-02 11:54] LABS: Alanine Aminotransferase 29 U/L (0-40); Albumin Level 4.3 g/dL (3.5-5.0); Alkaline Phosphatase 72 U/L (39-117); Anion Gap 11 (12-20); Aspartate Amino Transferase 34 U/L (5-37); Blood Urea Nitrogen 14 mg/dL (9-16); Calcium 8.7 mg/dL (8.4-10.2); Carbon Dioxide 23 mmol/L (22-29); Chloride 111 mmol/L (96-108); Cholesterol 136 mg/dL (<200); Estimated Glomerular Filt Rate > 60; HDL Cholesterol 37 mg/dL (>40); Potassium 3.8 mmol/L (3.3-5.1); Sodium 141 mmol/L (135-145); Total Protein 6.7 g/dL (6.5-8.0); Triglycerides 116 mg/dL (<150)
[2025-09-02 12:00] LABS: Microalbum/Creatinine Ratio Ur 8.8 ug/mg cr (<30)
== END 2025-09-02 08:26 | disposition home or self-care (01) ==
LOC: HO.WFDLDS 08:25
PROVIDERS: PCP Physician Assistant; Visit Provider Physician Assistant
DX: R30.0 Dysuria (principal); N28.1 Cyst of kidney, acquired; E66.01 Morbid (severe) obesity due to excess calories; E78.5 Hyperlipidemia, unspecified; I10 Essential (primary) hypertension; E11.9 Type 2 diabetes mellitus without complications
CPT/HCPCS: 36415; 80053; 80061; 81003; 82043; 82570; 83036; 84443; 85025; 99212